=== PATIENT | male | born 1950 | race Caucasian/White ===

== ENCOUNTER 2022-09-12 19:21 | Outpatient (CLI) | payer MEDICARE, OTHER | END 2022-09-12 23:59 | disposition critical access hospital (66) | LOC: EMS 19:21 | DX: R07.9 Chest pain, unspecified (principal) | CPT/HCPCS: A0425; A0427 ==

== ENCOUNTER 2022-09-12 19:50 | Emergency (ER) | payer MEDICARE, OTHER ==
[2022-09-12 20:19] LABS: BASOPHILS # (AUTO) 0.1 10^3/uL (0.0-0.1); BASOPHILS % (AUTO) 1.3 %; EOSINOPHILS # (AUTO) 0.3 10^3/uL (0.0-0.7); EOSINOPHILS % (AUTO) 5.9 %; HCT - HEMATOCRIT 42.7 % (42.0-52.0); HGB - HEMOGLOBIN 13.6 g/dL (14.0-18.0); LYMPHOCYTES # (AUTO) 1.5 10^3/uL (1.5-3.5); LYMPHOCYTES % (AUTO) 31.9 %; MEAN CORPUSCULAR HEMOGLOBIN 28.9 pg (27.0-31.0); MEAN CORPUSCULAR HGB CONC 31.9 g/dL (32.0-36.0); MEAN CORPUSCULAR VOLUME 90.9 fL (80.0-94.0); MEAN PLATELET VOLUME 9.6 fL (7.4-11.4); MONOCYTES # (AUTO) 0.5 10^3/uL (0.0-1.0); MONOCYTES % (AUTO) 10.8 %; NEUTROPHILS # (AUTO) 2.3 10^3/uL (1.5-6.6); NEUTROPHILS % (AUTO) 49.9 %; PLT - PLATELET COUNT 212 10^3/uL (130-450); RED CELL DISTRIBUTION WIDTH 13.4 % (12.0-15.0); WHITE BLOOD COUNT 4.5 x10^3/uL (4.8-10.8)
[2022-09-12 20:37] LABS: ALBUMIN/GLOBULIN RATIO 1.5 (1.0-2.2); BILIRUBIN,TOTAL 0.6 mg/dL (0.2-1.0); CREATININE 0.9 mg/dL (0.6-1.2); POTASSIUM 3.6 mmol/L (3.5-5.0); TOTAL PROTEIN 6.7 g/dL (6.7-8.2)
--- NOTE | 2022-09-12 20:54 | ED Physician Documentation ---
PD HPI CHEST PAIN - Stated complaint Stated Complaint: CP - Chief complaint Chief Complaint: Cardiac - History obtained from History obtained from: Patient, EMS - Additional information Additional information: The patient comes to the emergency department chief complaint of episodes of chest tingling over the last few weeks. He states that he had a knee replacement and was on aspirin for this including several weeks postop. He states that he stopped the aspirin after the prescribed amount of time and that he began to notice about once a day, in the afternoon, he would get an episode of warmth and tingling that would spread up through his bilateral chest and down to about his bilateral elbows. He states it would last maybe 90 seconds and then go away. There were no other associated symptoms. He stated that he would go to physical therapy and get exercise and did not have any symptoms with that. The patient states that finally, after 2 weeks of getting these episodes, he called his tile mason and schedule an appointment, which is coming up in about 5 days. He states that he was told to get checked out more acutely if anything got worse. He states that 2 days ago, he developed the same type of symptoms except this time, it was just on the left and it was more intense. He states it was not terribly painful but was noticeably worse than the daily symptoms he had been having for 2 weeks. It lasted for about a minute or so and then resolved. He went to the urgent care where they did an EKG and restarted his aspirin and told him he had angina. The patient was able to set up an appoint with a juice weigher which is coming up in a few weeks. He has been taking his aspirin since seen urgent care but today, had another left-sided episode of tingling which was more intense than the one a couple of days ago. He also states it lasted for some minutes until EMS showed up and gave him a dose of nitroglycerin. He still rates the discomfort as being a 1 out of 10 at that david e but states that it was more intense than previous episodes. He states he has no discomfort now. Patient denies shortness of breath, nausea, or lightheadedness. He states he has no personal history of coronary artery disease. He is on medication for both hyperlipidemia and hypertension and has been for about the last 35 to 40 years. He states he has been stable on both his Lipitor and atenolol with no change in dosing and no progression of disease. He denies any history of smoking personally, though he was exposed to heavy secondhand smoke when he was a child. He denies any other complaints at this time. The patient is a retired dentist. PD PAST MEDICAL HISTORY - Past Medical History Past Medical History: Yes Cardiovascular: Hypertension, High cholesterol : Benign prostate hypertrophy - Past Surgical History Past Surgical History: Yes - Present Medications Home Medications: Ambulatory Orders Medication Instructions Recorded Confirmed Nitroglycerin [Nitrostat] 0.4 mg SL Q5MIN PRN #25 tablet 09/12/22 - Allergies Allergies/Adverse Reactions: Allergies Allergy/AdvReac Type Severity Reaction Status Date / Time No Known Drug Allergies Allergy Verified 09/12/22 20:09 - Social History Does the pt smoke?: No Smoking Status: Never smoker Does the pt drink ETOH?: No Does the pt have substance abuse?: No - Immunizations Immunizations are current?: Yes - POLST Patient has POLST: No PD ED PE NORMAL - Vitals Vital signs reviewed: Yes - General General: Alert and oriented X 3, No acute distress, Well developed/nourished - HEENT HEENT: Atraumatic, PERRL, EOMI, Moist mucous membranes - Neck Neck: Supple, no meningeal sign - Cardiac Cardiac: RRR, No murmur, Strong equal pulses - Respiratory Respiratory: No respiratory distress, Clear bilaterally - Abdomen Abdomen: Soft, Non tender, Non distended - Derm Derm: Normal color, Warm and dry, No rash - Extremities Extremities: No deformity, No edema, No calf tenderness / cord - Neuro Neuro: Alert and oriented X 3, Other (Grossly intact) - Psych Psych: Normal mood, Normal affect Results - Vitals Vitals: Vital Signs - 24 hr 09/12/22 09/12/22 09/12/22 20:01 20:05 21:00 Temperature 36.8 C Heart Rate 73 70 61 Respiratory 19 23 19 Rate Blood Pressure 126/82 H 118/77 114/76 O2 Saturation 97 97 93 09/12/22 09/12/22 09/12/22 21:30 22:00 22:30 Temperature Heart Rate 60 58 L 56 L Respiratory 18 17 15 Rate Blood Pressure 109/80 112/75 118/74 O2 Saturation 94 95 96 Oxygen O2 Source Room air - EKG (time done) 1955 EKG releavant findings:: EKG personally interpreted by author of this note. Relevant findings are: Rate: Rate (enter#) (64) Rhythm: NSR [place]: Anterior hemiblock Intervals: Normal HI QRS: LVH (Probable) Ischemia: Normal ST segments Compare to prior EKG: Old EKG unavailable Computer interpretation: Agree with computer - Labs Labs: Laboratory Tests 09/12/22 09/12/22 09/12/22 20:11 20:11 20:11 WBC 4.5 L RBC 4.70 Hgb 13.6 L Hct 42.7 MCV 90.9 MCH 28.9 MCHC 31.9 L RDW 13.4 Plt Count 212 MPV 9.6 Neut # (Auto) 2.3 Lymph # (Auto) 1.5 [place] # (Auto) 0.5 Eos # (Auto) 0.3 Baso # (Auto) 0.1 Absolute Nucleated RBC 0.00 Nucleated RBC % 0.0 Sodium 141 Potassium 3.6 Chloride 109 Carbon Dioxide 25 Anion Gap 7.0 BUN 22 H Creatinine 0.9 Estimated GFR (MDRD) 83 L Glucose 111 H Calcium 9.0 Total Bilirubin 0.6 AST 17 ALT 20 Alkaline Phosphatase 71 Troponin I High Sens 4.7 Total Protein 6.7 Albumin 4.0 Globulin 2.7 Albumin/Globulin Ratio 1.5 Lipase 33 09/12/22 22:02 WBC RBC Hgb Hct MCV MCH MCHC RDW Plt Count MPV Neut # (Auto) Lymph # (Auto) [place] # (Auto) Eos # (Auto) Baso # (Auto) Absolute Nucleated RBC Nucleated RBC % Sodium Potassium Chloride Carbon Dioxide Anion Gap BUN Creatinine Estimated GFR (MDRD) Glucose Calcium Total Bilirubin AST ALT Alkaline Phosphatase Troponin I High Sens 8.0 Total Protein Albumin Globulin Albumin/Globulin Ratio Lipase PD Medical Decision Making - ED course Complexity details: reviewed results, re-evaluated patient, considered differential, d/w patient ED course: The patient was worked up with laboratory studies including CBC, ER abdominal panel, and troponin. He was also worked up with EKG. The initial laboratory studies were reviewed by me and negative. He had already chewed 4 baby aspirin and been given nitroglycerin in route and the patient is completely asymptomatic at this time. He was already on beta-blockers and antihyperlipidemics and at this point was given no other medication the emergency department. Both of the patient's troponins were normal, as was his EKG. I discussed with the patient that at this point, we will put him on nitroglycerin sublingual at home. We have discussed that if the patient develops pain that is refractory to the nitro, or is associated with other worrisome symptoms such as shortness of breath, nausea, and diaphoresis, that he should come to the emergency department immediately. Otherwise, he should continue his plans to follow-up with his tile mason and juice weigher in the coming weeks. Departure - Departure Disposition: , Self Care Clinical Impression: Angina pectoris Condition: Stable Instructions: ED Chest Pain Angina Stable Prescriptions: Nitroglycerin [Nitrostat] 0.4 mg SL Q5MIN PRN #25 tablet PRN Reason: Chest Pain Comments: Your EKG looks great and both sets of cardiac enzymes are negative. Your symptoms are concerning for angina, as they have resolved with nitroglycerin today. You have been given a prescription for nitroglycerin to have at home if you have further episodes like this. This is to be taken as needed and you may follow the package instructions. However, if your symptoms persist after taking the nitroglycerin, or if you have other worrisome symptoms in addition, such as shortness of breath, nausea, and facial sweating, you should return to the [facility] department. Otherwise, if the nitroglycerin relieves your symptoms, please continue your plan to follow-up with your tile mason and cardiology. The prescription for your nitroglycerin [facility] in [place], near where you live. Discharge Date/Time: 09/12/22 23:28
[2022-09-12 23:29] VITALS: BP 118/74
== END 2022-09-12 23:28 | disposition home or self-care (01) ==
LOC: ED 19:50
DX: I20.9 Angina pectoris, unspecified (principal); I10 Essential (primary) hypertension; E78.00 Pure hypercholesterolemia, unspecified
CPT/HCPCS: 36415; 80053; 83690; 84484; 85025; 93005; 99283; 99284